=== PATIENT | male | born 1965 | race Caucasian/White ===

== ENCOUNTER 2017-12-29 09:54 | Outpatient (CLI) | payer BC ==
[~2017-12-29] VITALS: Ht 203.2 cm; Wt 98.4 kg
== END 2017-12-29 10:12 | disposition home or self-care (01) ==
LOC: PREOP 09:54
PROVIDERS: ATTEND Surgery
DX: Z01.818 Encounter for other preprocedural examination (principal)

== ENCOUNTER → 2018-01-04 | Day surgery (SDC) | payer BC ==
[~2018-01-04] VITALS: Ht 203.2 cm; Wt 98.4 kg
[~2018-01-04] MED LIST: MIDAZOLAM 2 MG/2 ML (VERSED) VIAL IVP ONE; MIDAZOLAM 2 MG/2 ML (VERSED) VIAL ONE; NS IV 500 ML 500 ML IV PRN; NS IV 500 ML 500 ML ONE; fentaNYL INJECTION 100 MCG/2 ML AMP IVP ONE; fentaNYL INJECTION 100 MCG/2 ML AMP ONE
--- OUTSIDE RECORDS SUMMARY | 2018-01-04 07:43 | XMS REPORT | Continuity of Care Document ---
Author Author [facility] Organization [facility] Address Unknown Phone Unavailable Allergies Active Description Code Type Severity Reaction Onset Reported/Identified Relationship to Patient Clinical Status Yes iodine [id number] Drug Allergy Unknown N/A 12/29/2017 Yes Penicillins [id number] Drug Allergy Unknown N/A 12/29/2017 Medications There is no data. 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 Results There is no data. Encounters ACCT No. Visit Date/Time Discharge Status Pt. Type Provider Facility Loc./Unit Complaint [id number] 12/29/2017 09:54:00 12/29/2017 10:12:00 DIS Outpatient YUNIEL RODRIGUEZ MD [facility] PREOP COLONOSCOPY [id number] 11/17/2014 13:05:00 11/17/2014 23:59:59 CLS Outpatient RANDY CAMPOS MD [facility] RAD RT TESTICULAR LESION [id number] 01/04/2018 07:39:00 ACT Outpatient MICHAEL HOLLIS, YUNIEL Fulton [facility] ENDO SCREENING [id number] 05/12/2014 11:35:00 Document Registration
--- NOTE | 2018-01-04 08:02 | History & Physicial ---
History of Present Illness History of Present Illness Reason for visit/HPI to undergo screening colonoscopy Date of Admission 01/04/18 Date Seen by a Provider: Jan 04, 2018 Time Seen by a Provider: 08:00 I consulted on this patient on 01/04/18 08:00 Attending Physician Yuniel Rodriguez MD Admitting Physician No,Local Physician Consult Allergies and Home Medications Allergies Coded Allergies: Penicillins (Verified Allergy, Unknown, 12/29/17) iodine (Verified Allergy, Unknown, 12/29/17) Home Medications No Active Prescriptions or Reported Meds Patient Home Medication List Home Medication List Reviewed: Yes Past Cqnfizf-Kwhury-Ulxknr Hx Patient Social History Marrital Status: Employed/Student: employed Type Used: Cigarettes Recent Foreign Travel: No Contact w/other who traveled: No Recent Hopitalizations: No Seasonal Allergies Seasonal Allergies: No Surgeries No Respiratory No Cardiovascular No Neurological No Reproductive System Hx Reproductive Disorders: No Gastrointestinal No Musculoskeletal No Arthritis Endocrine History of Endocrine Disorders: No HEENT History of HEENT Disorders: No Cancer No Psychosocial History of Psychiatric Problem: No Review of Systems Constitutional: no symptoms reported Respiratory: no symptoms reported Cardiovascular: no symptoms reported Gastrointestinal: no symptoms reported Genitourinary: no symptoms reported Musculoskeletal: no symptoms reported Skin: no symptoms reported Psychiatric/Neurological: No Symptoms Reported Physical Exam Vital Signs Capillary Refill : Height, Weight, BMI Height: 6'8.00" Weight: 217lbs. 0.0oz. 98.168209lh; 23.8 BMI Method: General Appearance: No Apparent Distress Neck: Normal Inspection Respiratory: Lungs Clear Cardiovascular: Regular Rate, Rhythm Gastrointestinal: Non Tender, Soft Rectal: Deferred Back: Normal Inspection Extremity: Normal Inspection Neurologic/Psychiatric: Oriented x3 Assessment/Plan Assessment and Plan gentleman to undergo screening colonoscopy Admission Diagnosis Admission Status: Other (Outpt Proc) YUNIEL RODRIGUEZ MD Jan 04, 2018 08:02
--- NOTE | 2018-01-04 08:02 | Conscious Sedation/ASA ---
Conscious Sedation Pre-Proced Time 08:02 ASA Score 2 For ASA 3 and 4: Consider anesthesia and medical clearance. Also, for patients with a history of failed moderate sedation consider anesthesia. Airway Lungs Heart ASA score ASA 1: a normal healthy patient ASA 2: a patient with a mild systemic disease (mid diabetes, controlled hypertension, obesity ASA 3: a patient with a severe systemic disease that limits activity (angina , COPD, prior Myocardial infarction) ASA 4: a patient with an incapacitating disease that is a constant threat to life (CHF, renal failure) ASA 5: a moribund patient not expected to survive 24 hrs. (ruptured aneurysm) ASA 6: a declared brain patient whose organs are being harvested. For emergent operations, add the letter E after the classification Mallampati Classification Grade 1 Sedation Plan Discussed options with patient/fam The patient is an appropriate candidate to undergo the planned procedure, sedation, and anesthesia. The patient immediately re-assessed prior to indication. YUNIEL RODRIGUEZ MD Jan 04, 2018 08:02
[2018-01-04 08:12] VITALS: BP 136/86
--- NOTE | 2018-01-04 08:51 | Endo Procedure Record ---
Endo Procedure Report Date of Procedure Last Colonoscopy: No Jan 04, 2018 Surgeon (s) YUNIEL RODRIGUEZ MD Post Procedure/Op Diagnosis very few diverticula Procedure Performed colonoscopy to cecum Description of Procedure Anesthesia Type: Conscious Sedation Specimen(s) collected/removed none Description of the Procedure Indication for the procedure: This gentleman came in for screening colonoscopy. He denied any relevant family history. Informed consent was obtained after reviewing the procedure in detail. Description of the procedure: He was placed in left lateral decubitus position and his vital signs were monitored. Conscious sedation was achieved using Versed and fentanyl. Digital rectal examination was unremarkable. The colonoscope was then introduced into the rectum and advanced all the way up to the cecum. The scope was then withdrawn slowly and the mucosa examined in a systematic fashion. Findings: Very few sigmoid diverticulae. No polyps were found. He tolerated the procedure well and was taken back to the nursing area in a stable condition. Impression: Screening colonoscopy. No polyps. No family history. Recommend repeating in 10 years. Copy Copies To 1: RANDY CAMPOS MD,YUNIEL Fulton MD Jan 04, 2018 08:51
--- NOTE | 2018-01-04 08:52 | Discharge Inst-Simple/Standard ---
Discharge Inst-Standard Discharge Medications New, Converted or Re-Newed RX: Other Patient Instructions/Follow Up Plan of Care/Instructions/FU: repeat colonoscopy in 10 years Activity as Tolerated: Yes Discharge Diet: No Restrictions YUNIEL RODRIGUEZ MD Jan 04, 2018 08:52
[2018-01-04 08:55] VITALS: BP 132/78
[2018-01-04 09:26] VITALS: BP 129/83
[2018-01-04 09:35] VITALS: BP 129/83
== END | disposition home or self-care (01) ==
LOC: ENDO 07:39
PROVIDERS: ATTEND Surgery
DX: Z12.11 Encounter for screening for malignant neoplasm of colon (principal); K57.30 Diverticulosis of large intestine without perforation or abscess without bleeding